=== PATIENT | female | born 1980 | race Caucasian/White ===

== ENCOUNTER 2016-11-22 01:33 | Outpatient (CLI) | payer BC ==
[2016-11-22] MEDS ORDERED: Ondansetron 4 MG/2 ML SDV IVPUSH ONE ×2 (02:18→06:10)
[2016-11-22] MEDS ORDERED: Lactated Ringers 1,000 ML IV SCH ×2 (02:30)
== END 2016-11-22 06:50 | disposition home or self-care (01) ==
LOC: MW.OBCHECK 01:33 → MW.OB 01:36 → MW.OBCHECK 06:50
PROVIDERS: ATTEND Obstetrics & Gynecology
DX: Z34.83 Encounter for supervision of other normal pregnancy, third trimester (principal); R11.2 Nausea with vomiting, unspecified; N94.89 Other specified conditions associated with female genital organs and menstrual cycle
CPT/HCPCS: 59025; 81003; 96361; 96374; 96376; J2405; J7120

== ENCOUNTER 2016-12-31 11:22 | Outpatient (CLI) | payer BC ==
--- NOTE | 2016-12-31 16:59 | US ---
EXAMINATION: Transabdominal obstetric ultrasound HISTORY: Elevated blood pressure COMPARISON: 10/22/2014 TECHNIQUE: Grayscale, spectral Doppler images obtained transabdominally. FINDINGS: There is a single live intrauterine with a heart rate of 150 bpm. The fetus is i n a cephalic position. The placenta is anterior grade 2-3. Amniotic fluid index is normal. There is positive movement and tone. IMPRESSION: Biophysical profile 02/19.
== END 2016-12-31 15:30 | disposition home or self-care (01) ==
LOC: MW.OBCHECK 11:22 → MW.OB 11:23 → MW.OBCHECK 15:30
PROVIDERS: ATTEND Obstetrics & Gynecology
DX: O26.899 Other specified pregnancy related conditions, unspecified trimester (principal); R03.0 Elevated blood-pressure reading, without diagnosis of hypertension
CPT/HCPCS: 59025; 76819; 76819-26; 81003

== ENCOUNTER 2017-01-31 01:46 | Inpatient (IN) | payer BC ==
[2017-01-31] MEDS ORDERED: fentaNYL 100 MCG/2 ML SDV ONE (01:58)
[2017-01-31] MEDS ORDERED: Ropivacaine 0.2% 2 MG/ML 20 ML SDV ONE (01:58)
[2017-01-31] MEDS ORDERED: ceFAZolin 2 GM in Premix Bag 1 BAG IV ONE (02:27)
[2017-01-31] MEDS ORDERED: Sodium Chloride 0.9% 2.5 ML Syringe FLUSH PRN (02:27)
[2017-01-31] MEDS ORDERED: Sodium Chloride 0.9% 10 ML Syringe FLUSH PRN (02:27)
[2017-01-31] MEDS ORDERED: Citric Acid/Sodium Citrate Solution 30 ML Cup PO SCH (02:30)
[2017-01-31] MEDS ORDERED: Phenylephrine 1% 10 MG/ML SDV ONE (02:56)
[2017-01-31] MEDS ORDERED: Morphine PF 10 MG/10 ML SDV ONE (03:00)
[2017-01-31] MEDS ORDERED: Ondansetron 4 MG/2 ML SDV ONE (03:00)
[2017-01-31] MEDS ORDERED: Oxytocin 10 Units/1 ML SDV ONE (03:00)
[2017-01-31] MEDS: Lactated Ringers 1,000 ML IV SCH ×4 (03:05→18:13)
--- NOTE | 2017-01-31 03:30 | PCM.PREANE ---
Preanesthetic Assessment - Anesthesia/Transfusion/Family Hx Anesthesia History: Prior Anesthesia Without Reaction Family History of Anesthesia Reaction: No - Review of Systems General: No Symptoms Pulmonary: No Symptoms Cardiovascular: No Symptoms Gastrointestinal: No symptoms Neurological: No Symptoms Other: Reports: None - Physical Assessment NPO Status Date: 01/30/17 NPO Status Time: 20:00 (last meal 1999, ate crackers at 0100, CL upon arrival OB tonight) Blood Pressure: 154/96 Height: 1.6 m Weight: 82.1 kg ASA Class: 3 (ASA 3 for arrival BP of 154/96) Airway Class: Mallampati = 1 Dentition: Reports: Normal Dentition ROM/Head Extension: Full Lungs: Clear to auscultation, Normal respiratory effort Cardiovascular: Regular Rate, Regular Rhythm - Lab Values: Laboratory Last Values WBC 12.05 K/uL (4.0-11.0) H 01/31/17 03:00 RBC 5.26 M/uL (4.30-5.90) 01/31/17 03:00 Hgb 15.6 g/dL (12.0-16.0) 01/31/17 03:00 Hct 45.9 % (36.0-46.0) 01/31/17 03:00 MCV 87.3 fL (80.0-98.0) 01/31/17 03:00 MCH 29.7 pg (27.0-32.0) 01/31/17 03:00 MCHC 34.0 g/dL (31.0-37.0) 01/31/17 03:00 RDW Std Deviation 43.9 fl (28.0-62.0) 01/31/17 03:00 RDW Coeff of Martha 14 % (11.0-15.0) 01/31/17 03:00 Plt Count 173 K/uL (150-400) 01/31/17 03:00 MPV 9.60 fL (7.40-12.00) 01/31/17 03:00 Nucleated RBC % 0.0 /100WBC 01/31/17 03:00 Nucleated RBCs # 0 K/uL 01/31/17 03:00 POC Glucose 120 mg/dL (60-110) H 01/31/17 02:20 Membrane Rupture POSITIVE 01/31/17 02:00 - Allergies Allergies/Adverse Reactions: Allergies Allergy/AdvReac Type Severity Reaction Status Date / Time Sulfa (Sulfonamide Allergy Hives Verified 12/15/13 10:06 Antibiotics) - Blood Blood Available: Yes - Anesthesia Plan Pre-Op Medication Ordered: Antacids - Acknowledgements Anesthesia Type Planned: Spinal Pt an Appropriate Candidate for the Planned Anesthesia: Yes Alternatives and Risks of Anesthesia Discussed w Pt/Guardian: Yes Pt/Guardian Understands and Agrees with Anesthesia Plan: Yes Additional Comments: , with prior C/S for breech presentation, 25 weeks=5d, scheduled for elective repeat C/s in 2 weeks, presents tonight with SROM, Has gest DM on glyburide, BS 120 on arrival. Has had climbing blood pressures recently, put on bed rest. Allergy Sulfa. Has only had 300 ml iv fluids today, Plan Spinal with duramorph. PreAnesthesia Questionnaire - SUBSTANCE USE Smoking Status *Q: Former Smoker Second Hand Smoke Exposure: No Days Per Week of Alcohol Use: 0 Recreational Drug Use History: No - HOME MEDS Home Medications: Home Meds Multivitamin [Multi-Vitamin Daily] 1 tab PO 12/15/13 [History] glyBURIDE [Micronase] 2.5 mg PO BIDAC 10/21/14 [History] Acetaminophen/oxyCODONE [Percocet 325-5 MG] 1 - 2 tab PO Q6H PRN #40 tablet [Rx] - CURRENT (IN HOUSE) MEDS Current Meds: Current Medications Citric Acid/Sodium Citrate (Bicitra Solution) 30 ml PO .ONCE MARIBELL Lactated Ringer's (Ringers, Lactated) 1,000 mls @ 500 mls/hr IV .BOLUS MARIBELL Last Admin: 01/31/17 03:05 Dose: 500 mls/hr Sodium Chloride (Saline Flush) 10 ml FLUSH ASDIRECTED PRN PRN Reason: Keep Vein Open Sodium Chloride (Saline Flush) 2.5 ml FLUSH ASDIRECTED PRN PRN Reason: Keep Vein Open Discontinued Medications Fentanyl (Sublimaze) Confirm Administered Dose 100 mcg .ROUTE .STK-MED ONE Stop: 01/31/17 01:59 Ropivacaine/Fentanyl/NS (Fentanyl 2 Mcg-Ropiv 0.2%-Ns) Confirm Administered Dose 100 mls @ as directed .ROUTE .STK-MED ONE Stop: 01/31/17 01:58 Cefazolin Sodium/Dextrose 2 gm (/ Premix) 50 mls @ 100 mls/hr IV ONETIME ONE Stop: 01/31/17 02:56 Morphine Sulfate (Duramorph Pf) Confirm Administered Dose 10 mg .ROUTE .STK-MED ONE Stop: 01/31/17 03:01 Ondansetron HCl (Zofran) Confirm Administered Dose 4 mg .ROUTE .STK-MED ONE Stop: 01/31/17 03:01 Oxytocin (Pitocin) Confirm Administered Dose 20 unit .ROUTE .STK-MED ONE Stop: 01/31/17 03:01 Phenylephrine HCl (Sean-Synephrine) Confirm Administered Dose 10 mg .ROUTE .STK- MED ONE Stop: 01/31/17 02:57 Ropivacaine (Naropin 0.2%) Confirm Administered Dose 20 ml .ROUTE .STK-MED ONE Stop: 01/31/17 01:59
[2017-01-31 03:43] LABS: CHLORIDE,CL 112 mmol/L (98-110); SODIUM,NA 141 mmol/L (136-146)
[2017-01-31] MEDS ORDERED: Labetalol 5 MG/ML 5 ML Syringe ONE (04:07)
[2017-01-31] MEDS ORDERED: Nalbuphine 10 MG/1 ML Vial IVPUSH PRN (04:17)
[2017-01-31] MEDS ORDERED: fentaNYL 100 MCG/2 ML SDV IVPUSH PRN (04:17)
[2017-01-31] MEDS ORDERED: Acetaminophen/oxyCODONE 325-5 MG Tab PO PRN ×2 (04:17→05:34)
[2017-01-31] MEDS ORDERED: Lanolin 100% Cream 7 GM Tube TOP PRN (05:34)
[2017-01-31] MEDS ORDERED: Bisacodyl 10 MG Supp RECTAL PRN (05:34)
[2017-01-31] MEDS ORDERED: diphenhydrAMINE 50 MG/ML SDV IVPUSH PRN (05:34)
[2017-01-31] MEDS ORDERED: Ondansetron 4 MG/2 ML SDV IV PRN (05:34)
[2017-01-31] MEDS: Ketorolac 30 MG/ML SDV IVPUSH SCH ×3 (05:52→18:15)
--- NOTE | 2017-01-31 05:58 | PCM.POSTAN ---
POST ANESTHESIA ASSESSMENT - MENTAL STATUS Mental Status: alert, oriented - RESPIRATORY Respiratory Status: respiratory rate WNL, airway patent, O2 saturation stable - CARDIOVASCULAR CV Status: pulse rate WNL, blood pressure stable - GASTROINTESTINAL GI Status: no symptoms - POST OP HYDRATION Hydration Status: adequate & stable
[2017-01-31] MEDS: Docusate Sodium 100 MG Cap PO SCH ×2 (10:13→21:09)
--- NOTE | 2017-01-31 10:42 | PCM48HPAN ---
Post Anesthesia Note - EVALUATION WITHIN 48HRS OF ANESTHETIC Vital Signs in Normal Range: Yes Patient Participated in Evaluation: Yes Respiratory Function Stable: Yes Airway Patent: Yes Cardiovascular Function Stable: Yes Hydration Status Stable: Yes Pain Control Satisfactory: Yes Nausea and Vomiting Control Satisfactory: Yes Mental Status Recovered: Yes - COMMENTS/OBSERVATIONS Free Text/Narrative:: States she is feeling a little dizzy still and Dr. London aware. No other discomforts.
[2017-02-01] MEDS: Ketorolac 30 MG/ML SDV IVPUSH SCH ×2 (00:07→06:19)
--- NOTE | 2017-02-01 07:38 | PCM.OPNOTE ---
- General Post-Op/Procedure Note Date of Surgery/Procedure: 01/31/17 Operative Procedure(s): Repeat low-transverse . Placement of surgicel over hysterotomy incision. Removal of right paratubal cyst Findings: Vaible female infant in vtx presentation w/ APGARS of 8&8 and wt of 6lbs. Clear amniotic fluid. Normal intact placenta with 3VC. Normal uterus, tubes and ovaries. One centimeter paratubal cyst on right. Pre Op Diagnosis: IUP @ 36+5. GBS Negative. premature rupture of membranes. Hypertensive disorder of Post-Op Diagnosis: Same. Delivered Anesthesia Technique: Spinal Primary Surgeon: Leticia London Anesthesia Provider: Maikel Pugh Development Director: Didi Peterson Pathology: Placenta Fluid Replacement, Intraop: 1,500 Output, Urine Amount: 800 EBL in mLs: 400 Complications: None known Condition: Good Free Text/Narrative:: Intake & Output 01/31/17 02/01/17 02/01/17 22:59 06:59 14:59 Intake Total 999 Output Total 1550 Balance -551 Dict#[id number]
--- NOTE | 2017-02-01 08:52 | PCM.PNPP ---
- General Info Date of Service: 02/01/17 Functional Status: Reports: pain controlled, tolerating diet, ambulating, urinating - Review of Systems General: Reports: No Symptoms HEENT: Reports: no symptoms Pulmonary: Reports: no symptoms Cardiovascular: Reports: No Symptoms Gastrointestinal: Reports: No symptoms, Flatus Genitourinary: Reports: no symptoms Musculoskeletal: Reports: no symptoms Skin: Reports: no symptoms Neurological: Reports: No Symptoms Psychiatric: Reports: no symptoms - General Info Date of Service: 02/01/17 - Patient Data Vital Signs - most recent: Last Vital Signs Temp 36.3 C 02/01/17 04:00 Pulse 93 02/01/17 04:00 Resp 14 02/01/17 04:00 BP 98/55 L 02/01/17 04:00 Pulse Ox 94 L 02/01/17 04:00 Weight - most recent: 82.1 kg I&O - last 24 hours: Intake & Output 01/31/17 02/01/17 02/01/17 22:59 06:59 14:59 Intake Total 999 Output Total 1550 800 Balance -551 -800 Lab Results - last 24 hrs: Laboratory Results - last 24 hr 02/01/17 Range/Units 05:50 Hgb 11.5 L (12.0-16.0) g/dL Hct 34.5 L (36.0-46.0) % Med Orders - Current: Current Medications Bisacodyl (Dulcolax) 10 mg RECTAL .ONCE PRN PRN Reason: Constipation Citric Acid/Sodium Citrate (Bicitra Solution) 30 ml PO .ONCE MARIBELL Last Admin: 01/31/17 03:38 Dose: 30 ml Diphenhydramine HCl (Benadryl) 25 mg IVPUSH Q6H PRN PRN Reason: Itching or Nausea Docusate Sodium (Colace) 100 mg PO BID MARIBELL Last Admin: 01/31/17 21:09 Dose: Not Given Emollient Ointment (Lansinoh Hpa) 0 gm TOP ASDIRECTED PRN PRN Reason: Sore Nipples Lactated Ringer's (Ringers, Lactated) 1,000 mls @ 500 mls/hr IV .BOLUS MARIBELL Last Admin: 01/31/17 03:42 Dose: 500 mls/hr Lactated Ringer's (Ringers, Lactated) 1,000 mls @ 125 mls/hr IV ASDIRECTED [facility] Last Admin: 01/31/17 18:13 Dose: 125 mls/hr Ibuprofen (Motrin) 800 mg PO Q8H PRN PRN Reason: mild pain or fever Ondansetron HCl (Zofran) 4 mg IV Q4H PRN PRN Reason: Nausea/Vomiting Oxycodone/Acetaminophen (Percocet 325-5 Mg) 2 tab PO ONETIME PRN PRN Reason: Pain (moderate 4-6) Oxycodone/Acetaminophen (Percocet 325-5 Mg) 1 tab PO Q4H PRN PRN Reason: Pain (moderate 4-6) Oxycodone/Acetaminophen (Percocet 325-5 Mg) 2 tab PO Q4H PRN PRN Reason: Pain (moderate 4-6) Sodium Chloride (Saline Flush) 10 ml FLUSH ASDIRECTED PRN PRN Reason: Keep Vein Open Sodium Chloride (Saline Flush) 2.5 ml FLUSH ASDIRECTED PRN PRN Reason: Keep Vein Open Last Admin: 01/31/17 12:04 Dose: 2.5 ml Discontinued Medications Fentanyl (Sublimaze) Confirm Administered Dose 100 mcg .ROUTE .STK-MED ONE Stop: 01/31/17 01:59 Last Admin: 01/31/17 12:56 Dose: Not Given Fentanyl (Sublimaze) 50 mcg IVPUSH Q5M PRN PRN Reason: Pain (severe 7-10) Stop: 02/01/17 04:18 Ropivacaine/Fentanyl/NS (Fentanyl 2 Mcg-Ropiv 0.2%-Ns) Confirm Administered Dose 100 mls @ as directed .ROUTE .STK-MED ONE Stop: 01/31/17 01:58 Last Admin: 01/31/17 12:56 Dose: Not Given Cefazolin Sodium/Dextrose 2 gm (/ Premix) 50 mls @ 100 mls/hr IV ONETIME ONE Stop: 01/31/17 02:56 Ketorolac Tromethamine (Toradol) 30 mg IVPUSH Q6H [facility] Stop: 02/01/17 05:46 Last Admin: 02/01/17 06:19 Dose: 30 mg Labetalol HCl (Normodyne) Confirm Administered Dose 25 mg .ROUTE .STK-MED ONE Stop: 01/31/17 04:08 Morphine Sulfate (Duramorph Pf) Confirm Administered Dose 10 mg .ROUTE .STK-MED ONE Stop: 01/31/17 03:01 Nalbuphine HCl (Nubain) 2.5 mg IVPUSH Q3H PRN PRN Reason: Pruritis Stop: 02/01/17 04:18 Ondansetron HCl (Zofran) Confirm Administered Dose 4 mg .ROUTE .STK-MED ONE Stop: 01/31/17 03:01 Oxytocin (Pitocin) Confirm Administered Dose 20 unit .ROUTE .STK-MED ONE Stop: 01/31/17 03:01 Phenylephrine HCl (Sean-Synephrine) Confirm Administered Dose 10 mg .ROUTE .STK- MED ONE Stop: 01/31/17 02:57 Ropivacaine (Naropin 0.2%) Confirm Administered Dose 20 ml .ROUTE .STK-MED ONE Stop: 01/31/17 01:59 Last Admin: 01/31/17 12:56 Dose: Not Given - Interaction Disposition, : [place] in Room with Family Interaction: Holding Infant Infant Feeding: Bottle Fed Support Person: - Recovery Exam Fundal Tone: Firm Fundal Level: 1 Fingerbreadths Below Umbilicus Fundal Placement: Midline Lochia Amount: Scant Lochia Color: Rubra/Red Perineum Description: Intact, Minimal Bruising/Swelling Episiotomy/Laceration: None Bladder Status: Indwelling Catheter in Place Urinary Elimination: Indwelling Catheter - Exam General: alert, oriented Neck: supple Lungs: Clear to auscultation, Normal respiratory effort Cardiovascular: Regular Rate, Regular Rhythm Abdomen: bowel sounds present, soft, no tenderness Extremities: no calf tenderness Skin: warm, dry, intact Wound/Incisions: healing well Neurological: no new focal deficit Psy/Mental Status: alert, normal affect, normal mood - Problem List & Annotations (1) History of section, low transverse SNOMED Code(s): 698558817 Code(s): Z98.891 - HISTORY OF UTERINE SCAR FROM PREVIOUS SURGERY Status: Acute Current Visit: Yes (2) delivery delivered SNOMED Code(s): 062983264 Code(s): O82 - ENCOUNTER FOR DELIVERY WITHOUT INDICATION Status: Acute Current Visit: Yes - Problem List Review Problem List Initiated/Reviewed/Updated: Yes - My Orders Last 24 Hours: My Active Orders 01/31/17 09:00 Docusate Sodium [Colace] 100 mg PO BID 01/31/17 Lunch Regular Diet [DIET] - Assessment Assessment:: POD#1 S/p RLTCS w/ severe antepartum HTN Doing well HTN resolved OOB voiding and ambulating without difficulty - Plan Plan:: Monitor BPs Increase ambulation Routine postop/ care
[2017-02-01] MEDS: Docusate Sodium 100 MG Cap PO SCH ×2 (11:27→21:35)
[2017-02-01] MEDS: Acetaminophen/oxyCODONE 325-5 MG Tab PO PRN ×3 (11:28→23:10)
[2017-02-01] MEDS: Ibuprofen 800 MG Tab PO PRN ×2 (13:32→21:35)
--- NOTE | 2017-02-01 23:50 | OR ---
SURGEON: Leticia London DATE OF PROCEDURE: 01/31/2017 BRIEF PREOPERATIVE HISTORY: This is a 36-year-old G6, P1 presented to Labor and Delivery at 36 weeks and 5 days with complaints of gross leakage of fluid. On exam, the patient was noted to be grossly ruptured and AmniSure was performed by nursing staff to ensure there was rupture of membranes. Rupture of membranes was for clear fluid. The patient was noted to be GBS negative. Her history is significant for previous C - section for breech at 38 weeks secondary to preeclampsia, but itself was for breech presentation. The patient had already decided that she would undergo repeat low transverse section. heart tracing on admission was significant for category 1 tracing and the patient was getting uncomfortable with contractions. The OR crew was called in. The patient was apprised of risks of being bleeding, infection, poor wound healing, possible damage to bowel, bladder, ureters, nerves blood vessels, or any other adjacent structures. Risk of anesthesia and thromboembolic disease was also discussed with the patient. Of note, on admission and the evaluation in OB triage, the patient did have mild range hypertension, which was even more significant when the patient was in the OR necessitating IV labetalol. Of note, secondary to patient's hypertension, the patient did undergo additional blood work that was significant for CMP with a creatinine of 0.8, which is noted to be elevated in , though LFTs were within normal limits. Platelets were normal. Uric acid was 6.2. Urine was not significant for any proteinuria. The patient denied any headaches, visual changes, epigastric or right upper quadrant pain. The patient did not have a headache at that time, but did admit to increasing headaches within the last week's time for which she stated that armed security guard, Dr. Summers, did take the patient out of work and put her on modified bedrest. The patient was taken to the operating room. The patient had Venodynes on and active prior to the placement of spinal anesthesia. The patient did undergo successful anesthesia. After placement of spinal, the patient then was laid down and prepped and draped in the normal sterile fashion. PREOPERATIVE DIAGNOSES: 1. Intrauterine at 36 weeks and 5 days. 2. premature rupture of membranes for clear fluid. 3. Group B streptococcus negative. 4. Hypertensive disorder of . POSTOPERATIVE DIAGNOSES: 1. Intrauterine at 36 weeks and 5 days. 2. Delivered status. PROCEDURE PERFORMED: 1. Repeat low transverse section. 2. Placement of Surgicel over hysterotomy incision. 3. Removal of 1-cm right paratubal cyst. ANESTHESIA: Spinal. ANESTHETISTS: Didi Peterson CRNA and Maikel Pugh MD. ESTIMATED BLOOD LOSS: 400 mL. URINE OUTPUT: 800 mL of clear urine at the end of procedure. FLUID REPLACEMENT: Intraoperative was about 2000 mL of crystalloid. FINDINGS: Viable female infant in vertex presentation with score of 8 and 9 at 1 and 5 minutes respectively, and weight of 6 pounds. Clear amniotic fluid. Normal intact placenta with 3-vessel cord. Normal uterus, tubes, and ovaries. 1-cm paratubal cyst on the right that was eventually removed. PATHOLOGY: Placenta was sent to pathology secondary to status and noted hypertensive disorder in . COMPLICATIONS: None known. CONDITION: Postop was good. DESCRIPTION OF PROCEDURE: After preparing and draping the patient in normal a sterile fashion, the patient was in dorsal supine position with a leftward tilt. A time-out was performed to ensure there was appropriate patient, appropriate physician, and appropriate procedure. The patient did receive 2 g of IV Ancef prior to start of procedure. The patient's previous Pfannenstiel incision was identified. The area was tested up to the umbilicus and the patient was not aware of testing. A fresh scalpel blade was used to underscore and overscore the previous Pfannenstiel incision of the skin and the excess scar tissue was removed. The incision was carried down to the layer of the fascia with a Bovie. The fascia was incised in the midline, and then extended laterally with the Bovie. After opening the fascia, the superior anterior edge of the fascia was grasped with the Sweetie clamps, tented up, and the rectus muscles were dissected off sharply with the Bovie. Attention then was turned to the inferior aspect of the fascial incision, which in a similar fashion was grasped and tented up with the Sweetie clamps, and the rectus muscles were dissected off bluntly, then sharply. After dissection of the rectus muscles off the fascia on either side what was thought to be the linea, the rectus muscles were grasped and tented up with the Allis clamps. Carefully, the rectus muscles were with the Bovie at the median raphae. Attention was taken to stay high as to stay clear off the bladder. Once the peritoneum was identified, the peritoneum was grasped between 2 Remedios clamps, and entered carefully and sharply with the Bovie. Once the defect in the peritoneum was made, the right index finger was placed through the defect and the anterior abdominal wall of the peritoneum was palpated in a clockwise fashion where there were no noted adhesions to the anterior abdominal wall. The peritoneal incision was then lengthened superiorly, and then carefully inferiorly staying clear off the bladder. The peritoneal access was then increased with lateral blunt stretching. The Hong self-retaining retractor was placed in the patient's abdomen, and then set. The vesicouterine peritoneum was identified with pickups and entered sharply with the Metzenbaum scissors. The bladder flap was then created digitally. A fresh scalpel blade was used to make a transverse incision in the lower uterine segment. The hysterotomy incision that was made with the scalpel was then opened in anterior- posterior direction as to prevent excess lateral shearing out to the lateral uterine vessels. Amniotic fluid was noted to be clear. The vertex was brought through the hysterotomy incision after fundal pressure. The was bulb suctioned. The cord was doubly clamped, and was handed off to the cone treater, Dr. Gutierrez, who was station engineer main line. Cord blood was collected and sent for analysis secondary to very vigorous 36 week /. Afterwards IV Pitocin was given as uterotonic to prevent excessive maternal blood loss and help clamp the uterus down. The placenta was removed manually and the uterus was cleared of all clots and debris. The angles of the hysterotomy incision were grasped with 2 Allis clamps. An 0 Vicryl suture on a CTX needle was used to close the first layer of the uterus in a running, locked fashion. The Allis clamps were removed and the corners with the length and uncut suture were tagged. The second 0 Vicryl suture on a CTX needle was used to place the imbricating layer that was noted to be somewhat hemostatic. The two areas that were non-hemostatic were made hemostatic with 0 Vicryl suture in a figure-of- eight fashion. Afterwards, hysterotomy incision was evaluated and hemostasis was noted to be excellent. The tubes and ovaries were then identified bilaterally, and the 1 cm right paratubal cyst was identified and doubly clamped with 2 Remedios and with the Bovie. The right paratubal cyst was removed and sent to pathology. The remaining Remedios clamp was removed and hemostasis was noted to be excellent. At this point, the hysterotomy incision was revisualized and was noted to be excellent. At the beginning of the , the patient was noted to have severe range blood pressures with the diastolic being in excess of 110 at any time. Unaware Anesthesia had given the patient a dose of IV labetalol to bring her pressures down. By the end of the procedure, it was noted that the patient's blood pressures were normotensive even on the low side compared to the start of procedure. A piece of Surgicel for this reason was placed on the hysterotomy incision just in case there were going to be some stray bleeders in case the patient's blood pressure did rebound that there would be no excess bleeding. Afterwards, the peritoneum and rectus muscles were reapproximated with 0 Vicryl suture in a running mattress suture. The fascia was reapproximated with 0 Vicryl suture in a running fashion. The adipose tissue was re-approximated with 3-0 plain gut suture. The skin was reapproximated with 3-0 Prolene suture on a Tucker needle. The remainder of the suture was tied and affixed to the patient's anterior abdominal wall. Mastisol and Steri-Strips were placed along with Telfa and a pressure dressing and tape. The patient was eventually moved to her bed and taken to recovery in awake and stable condition. The patient and tolerated the procedure well. Sponge, lap, needle, and instrument counts were correct. In addition to surgical precautions, the patient was advised also risk of would be thromboembolic disease. GARCIA / LASHAY /[id number] TONI
[2017-02-02] MEDS: Acetaminophen/oxyCODONE 325-5 MG Tab PO PRN ×2 (03:03→04:54)
[2017-02-02 08:05] VITALS: BP 132/86
--- NOTE | 2017-02-02 08:27 | PCM.PNPP ---
<Bessie Pereira - Last Filed: 02/02/17 08:30> - General Info Date of Service: 02/02/17 Functional Status: Reports: pain controlled, tolerating diet, ambulating, urinating - Review of Systems General: Denies: Fever, Weakness, Fatigue Pulmonary: Denies: shortness of breath, pleuritic chest pain, cough Cardiovascular: Denies: Chest Pain, Palpitations, Dyspnea on Exertion Gastrointestinal: Denies: Abdominal pain Genitourinary: Denies: dysuria Neurological: Reports: No Symptoms - General Info Date of Service: 02/02/17 - Patient Data Vital Signs - most recent: Last Vital Signs Temp 36.7 C 02/02/17 07:30 Pulse 90 02/02/17 07:30 Resp 16 02/02/17 07:30 BP 132/86 02/02/17 07:30 Pulse Ox 97 02/02/17 07:30 Weight - most recent: 82.1 kg I&O - last 24 hours: Intake & Output 02/01/17 02/02/17 02/02/17 22:59 06:59 14:59 Intake Total 1500 Output Total 800 Balance 700 Med Orders - Current: Current Medications Bisacodyl (Dulcolax) 10 mg RECTAL .ONCE PRN PRN Reason: Constipation Citric Acid/Sodium Citrate (Bicitra Solution) 30 ml PO .ONCE [facility] Last Admin: 01/31/17 03:38 Dose: 30 ml Diphenhydramine HCl (Benadryl) 25 mg IVPUSH Q6H PRN PRN Reason: Itching or Nausea Docusate Sodium (Colace) 100 mg PO BID [facility] Last Admin: 02/01/17 21:35 Dose: 100 mg Emollient Ointment (Lansinoh Hpa) 0 gm TOP ASDIRECTED PRN PRN Reason: Sore Nipples Lactated Ringer's (Ringers, Lactated) 1,000 mls @ 500 mls/hr IV .BOLUS [facility] Last Admin: 01/31/17 03:42 Dose: 500 mls/hr Lactated Ringer's (Ringers, Lactated) 1,000 mls @ 125 mls/hr IV ASDIRECTED [facility] Last Admin: 01/31/17 18:13 Dose: 125 mls/hr Ibuprofen (Motrin) 800 mg PO Q8H PRN PRN Reason: mild pain or fever Last Admin: 02/01/17 21:35 Dose: 800 mg Ondansetron HCl (Zofran) 4 mg IV Q4H PRN PRN Reason: Nausea/Vomiting Oxycodone/Acetaminophen (Percocet 325-5 Mg) 2 tab PO ONETIME PRN PRN Reason: Pain (moderate 4-6) Oxycodone/Acetaminophen (Percocet 325-5 Mg) 1 tab PO Q4H PRN PRN Reason: Pain (moderate 4-6) Last Admin: 02/02/17 04:54 Dose: 1 tab Oxycodone/Acetaminophen (Percocet 325-5 Mg) 2 tab PO Q4H PRN PRN Reason: Pain (moderate 4-6) Sodium Chloride (Saline Flush) 10 ml FLUSH ASDIRECTED PRN PRN Reason: Keep Vein Open Sodium Chloride (Saline Flush) 2.5 ml FLUSH ASDIRECTED PRN PRN Reason: Keep Vein Open Last Admin: 01/31/17 12:04 Dose: 2.5 ml Discontinued Medications Fentanyl (Sublimaze) Confirm Administered Dose 100 mcg .ROUTE .STK-MED ONE Stop: 01/31/17 01:59 Last Admin: 01/31/17 12:56 Dose: Not Given Fentanyl (Sublimaze) 50 mcg IVPUSH Q5M PRN PRN Reason: Pain (severe 7-10) Stop: 02/01/17 04:18 Ropivacaine/Fentanyl/NS (Fentanyl 2 Mcg-Ropiv 0.2%-Ns) Confirm Administered Dose 100 mls @ as directed .ROUTE .STK-MED ONE Stop: 01/31/17 01:58 Last Admin: 01/31/17 12:56 Dose: Not Given Cefazolin Sodium/Dextrose 2 gm (/ Premix) 50 mls @ 100 mls/hr IV ONETIME ONE Stop: 01/31/17 02:56 Ketorolac Tromethamine (Toradol) 30 mg IVPUSH Q6H MARIBELL Stop: 02/01/17 05:46 Last Admin: 02/01/17 06:19 Dose: 30 mg Labetalol HCl (Normodyne) Confirm Administered Dose 25 mg .ROUTE .STK-MED ONE Stop: 01/31/17 04:08 Morphine Sulfate (Duramorph Pf) Confirm Administered Dose 10 mg .ROUTE .STK-MED ONE Stop: 01/31/17 03:01 Nalbuphine HCl (Nubain) 2.5 mg IVPUSH Q3H PRN PRN Reason: Pruritis Stop: 02/01/17 04:18 Ondansetron HCl (Zofran) Confirm Administered Dose 4 mg .ROUTE .STK-MED ONE Stop: 01/31/17 03:01 Oxytocin (Pitocin) Confirm Administered Dose 20 unit .ROUTE .STK-MED ONE Stop: 01/31/17 03:01 Phenylephrine HCl (Sean-Synephrine) Confirm Administered Dose 10 mg .ROUTE .STK- MED ONE Stop: 01/31/17 02:57 Ropivacaine (Naropin 0.2%) Confirm Administered Dose 20 ml .ROUTE .STK-MED ONE Stop: 01/31/17 01:59 Last Admin: 01/31/17 12:56 Dose: Not Given - Interaction Infant Disposition, : in Room with Family Infant Interaction: Holding Infant Feeding: Bottle Fed Infant Support Person: - Recovery Exam Fundal Tone: Firm Fundal Level: 1 Fingerbreadths Below Umbilicus Fundal Placement: Midline Lochia Amount: Scant Lochia Color: Rubra/Red Perineum Description: Intact, Minimal Bruising/Swelling Episiotomy/Laceration: None Bladder Status: Voiding Urinary Elimination: Voided - Exam General: alert, oriented Lungs: Clear to auscultation, Normal respiratory effort Cardiovascular: Regular Rate, Regular Rhythm Abdomen: bowel sounds present, soft, no tenderness, no distension Extremities: edema (trace) Psy/Mental Status: alert, normal affect, normal mood - Problem List & Annotations (1) delivery delivered SNOMED Code(s): 079592336 Code(s): O82 - ENCOUNTER FOR DELIVERY WITHOUT INDICATION Status: Acute Current Visit: Yes - Problem List Review Problem List Initiated/Reviewed/Updated: Yes - Assessment Assessment:: POD#2 S/p RLTCS w/ severe antepartum HTN. Mininal pain and lochia. Vital signs are stable. Denies chest pain, SOB, headache, or vision changes. Discharge home today. - Plan Plan:: Discharge home today. Nothing in the vagina for 6 weeks. Continue PNV while breast feeding. Rx for Percocet to use as needed for pain. No lifting greater than 10lbs. Instructed patient to call if she develops fever greater than 101 or bleeding through a large pad an hour. F/U with [facility] in 2 and 6 weeks. <Dasia Summers - Last Filed: 02/02/17 10:36> - Patient Data Vital Signs - most recent: Last Vital Signs Temp 36.7 C 02/02/17 07:30 Pulse 90 02/02/17 07:30 Resp 16 02/02/17 07:30 BP 132/86 02/02/17 07:30 Pulse Ox 97 02/02/17 07:30 I&O - last 24 hours: Intake & Output 02/01/17 02/02/17 02/02/17 22:59 06:59 14:59 Intake Total 1500 Output Total 800 Balance 700 Med Orders - Current: Current Medications Bisacodyl (Dulcolax) 10 mg RECTAL .ONCE PRN PRN Reason: Constipation Citric Acid/Sodium Citrate (Bicitra Solution) 30 ml PO .ONCE [facility] Last Admin: 01/31/17 03:38 Dose: 30 ml Diphenhydramine HCl (Benadryl) 25 mg IVPUSH Q6H PRN PRN Reason: Itching or Nausea Docusate Sodium (Colace) 100 mg PO BID [facility] Last Admin: 02/02/17 08:36 Dose: 100 mg Emollient Ointment (Lansinoh Hpa) 0 gm TOP ASDIRECTED PRN PRN Reason: Sore Nipples Lactated Ringer's (Ringers, Lactated) 1,000 mls @ 500 mls/hr IV .BOLUS [facility] Last Admin: 01/31/17 03:42 Dose: 500 mls/hr Lactated Ringer's (Ringers, Lactated) 1,000 mls @ 125 mls/hr IV ASDIRECTED [facility] Last Admin: 01/31/17 18:13 Dose: 125 mls/hr Ibuprofen (Motrin) 800 mg PO Q8H PRN PRN Reason: mild pain or fever Last Admin: 02/02/17 08:36 Dose: 800 mg Ondansetron HCl (Zofran) 4 mg IV Q4H PRN PRN Reason: Nausea/Vomiting Oxycodone/Acetaminophen (Percocet 325-5 Mg) 2 tab PO ONETIME PRN PRN Reason: Pain (moderate 4-6) Oxycodone/Acetaminophen (Percocet 325-5 Mg) 1 tab PO Q4H PRN PRN Reason: Pain (moderate 4-6) Last Admin: 02/02/17 04:54 Dose: 1 tab Oxycodone/Acetaminophen (Percocet 325-5 Mg) 2 tab PO Q4H PRN PRN Reason: Pain (moderate 4-6) Sodium Chloride (Saline Flush) 10 ml FLUSH ASDIRECTED PRN PRN Reason: Keep Vein Open Sodium Chloride (Saline Flush) 2.5 ml FLUSH ASDIRECTED PRN PRN Reason: Keep Vein Open Last Admin: 01/31/17 12:04 Dose: 2.5 ml Discontinued Medications Fentanyl (Sublimaze) Confirm Administered Dose 100 mcg .ROUTE .STK-MED ONE Stop: 01/31/17 01:59 Last Admin: 01/31/17 12:56 Dose: Not Given Fentanyl (Sublimaze) 50 mcg IVPUSH Q5M PRN PRN Reason: Pain (severe 7-10) Stop: 02/01/17 04:18 Ropivacaine/Fentanyl/NS (Fentanyl 2 Mcg-Ropiv 0.2%-Ns) Confirm Administered Dose 100 mls @ as directed .ROUTE .STK-MED ONE Stop: 01/31/17 01:58 Last Admin: 01/31/17 12:56 Dose: Not Given Cefazolin Sodium/Dextrose 2 gm (/ Premix) 50 mls @ 100 mls/hr IV ONETIME ONE Stop: 01/31/17 02:56 Ketorolac Tromethamine (Toradol) 30 mg IVPUSH Q6H [facility] Stop: 02/01/17 05:46 Last Admin: 02/01/17 06:19 Dose: 30 mg Labetalol HCl (Normodyne) Confirm Administered Dose 25 mg .ROUTE .STK-MED ONE Stop: 01/31/17 04:08 Morphine Sulfate (Duramorph Pf) Confirm Administered Dose 10 mg .ROUTE .STK-MED ONE Stop: 01/31/17 03:01 Nalbuphine HCl (Nubain) 2.5 mg IVPUSH Q3H PRN PRN Reason: Pruritis Stop: 02/01/17 04:18 Ondansetron HCl (Zofran) Confirm Administered Dose 4 mg .ROUTE .STK-MED ONE Stop: 01/31/17 03:01 Oxytocin (Pitocin) Confirm Administered Dose 20 unit .ROUTE .STK-MED ONE Stop: 01/31/17 03:01 Phenylephrine HCl (Sean-Synephrine) Confirm Administered Dose 10 mg .ROUTE .STK- MED ONE Stop: 01/31/17 02:57 Ropivacaine (Naropin 0.2%) Confirm Administered Dose 20 ml .ROUTE .STK-MED ONE Stop: 01/31/17 01:59 Last Admin: 01/31/17 12:56 Dose: Not Given - My Orders Last 24 Hours: My Active Orders 02/02/17 Breakfast Regular Diet [DIET] - Plan Plan:: Patient seen and examined--agree with plan of care. Patient will monitor BPs at home--she has been normotensive and denies any headache, visual changes or ME pain.
[2017-02-02] MEDS: Ibuprofen 800 MG Tab PO PRN (08:36)
[2017-02-02] MEDS: Docusate Sodium 100 MG Cap PO SCH (08:36)
== END 2017-02-02 11:05 | disposition home or self-care (01) | DRG 540 ==
LOC: MW.OB 01:46 → MW.OBCHECK 01:46 → MW.OB 02:28 → UNDODISIN 02-01 20:09
PROVIDERS: ADMIT Obstetrics & Gynecology; ATTEND Obstetrics & Gynecology
PROC: 10D00Z1 Extraction of Products of Conception, Low, Open Approach (ICD-10-PCS; principal; 2017-01-31)
PROC: 0UB50ZZ Excision of Right Fallopian Tube, Open Approach (ICD-10-PCS; 2017-01-31)
DX: O42.02 Full-term premature rupture of membranes, onset of labor within 24 hours of rupture (principal); O16.4 Unspecified maternal hypertension, complicating childbirth; O34.211 Maternal care for low transverse scar from previous cesarean delivery; N85.8 Other specified noninflammatory disorders of uterus; Z37.0 Single live birth; Z3A.37 37 weeks gestation of pregnancy; Z87.891 Personal history of nicotine dependence; Z88.2 Allergy status to sulfonamides
CPT/HCPCS: 01961; 36415; 59025; 80053; 82962; 84112; 84156; 84550; 85014; 85018; 85027; 86850; 86900; 86901; 88307; A9270-GY; J0690; J1885; J2270; J2370; J2405; J2590; J7120